=== PATIENT | female | born 1985 | race Caucasian/White ===

== ENCOUNTER 2019-08-17 13:53 | Inpatient (IN) | payer OTHER ==
--- NOTE | 2019-08-17 14:31 | ED ---
Psychiatric Complaint - HPI Summary HPI Summary: This patient is a 34 year old F presenting to ED with a chief complaint of suicidal ideations since a while ago, but worsening recently. Patient has attempted suicide a few times in the past. Patient has plans to cut herself, overdose, and jump off a kita. Patient is on Vistaril for depression and anxiety. Patient is on parole. She was recently taken off Paxil due to hallucinations. The patient rates the pain 0/10 in severity. Symptoms aggravated by nothing. Symptoms alleviated by nothing. Patient denies fever. - History Of Current Complaint Chief Complaint: EDSuicidal Time Seen by Provider: 08/17/19 14:19 Hx Obtained From: Patient Onset/Duration: Gradual Onset, Lasting Weeks, Still Present, Worse Since Timing: Constant Severity Initially: Severe Severity Currently: Severe Character: Anxious Aggravating Factor(s): Nothing Alleviating Factor(s): Nothing Related History: Positive For: Prior Psychiatric Issues Has Suicidal: Reports: Thoughts, With A Plan - Allergies/Home Medications Allergies/Adverse Reactions: Allergies Allergy/AdvReac Type Severity Reaction Status Date / Time paroxetine [From Paxil] Allergy Hallucinati Verified 08/18/19 09:08 ons Penicillins Allergy Palpitation Verified 08/18/19 09:08 s Home Medications: Home Medications Benzonatate CAP* [Tessalon 100 MG CAP*] 100 mg PO TID PRN 08/17/19 [History Confirmed 08/17/19] Ipratropium Br (Nf)0.03% Nasal [Ipratropium [place]] 0.06 % BOTH NARES BID PRN 08/17/19 [History Confirmed 08/17/19] Levothyroxine TAB* [Synthroid TAB*] 75 mcg PO DAILY 08/17/19 [History Confirmed 08/17/19] Naproxen TAB* [Naprosyn 250 mg TAB*] 500 mg PO BID WITH MEALS 08/17/19 [History Confirmed 08/17/19] hydrOXYzine pamoate [Vistaril] 50 mg PO BID 08/17/19 [History Confirmed 08/17/19 ] PMH/Surg Hx/FS Hx/Imm Hx Sensory History: Denies: Hx Legally Blind, Hx Deafness Opthamlomology History: Denies: Hx Legally Blind EENT History: Denies: Hx Deafness Psychiatric History: Reports: Hx Anxiety, Hx Suicide Attempt - Surgical History Surgery Procedure, Year, and Place: denies Infectious Disease History: No Infectious Disease History: Denies: Traveled Outside the [place] in Last 30 Days - Family History Known Family History: Positive: Diabetes - Social History Alcohol Use: None Hx Substance Use: No Substance Use Type: Reports: None Substance Use Comment - Amount & Last Used: denies at this time Hx Tobacco Use: Yes Smoking Status (MU): Heavy Every Day Tobacco Smoker Review of Systems Negative: Fever Psychological: Other - SI Positive: Anxious All Other Systems Reviewed And Are Negative: Yes Physical Exam - Summary Physical Exam Summary: VITAL SIGNS: Reviewed. GENERAL: Patient is a well-developed and nourished female who is severely anxious. HEAD AND FACE: No signs of trauma. No ecchymosis, hematomas or skull depressions. No sinus tenderness. EYES: PERRLA, EOMI x 2, No injected conjunctiva, no nystagmus. EARS: Hearing grossly intact. Ear canals and tympanic membranes are within normal limits. MOUTH: Oropharynx within normal limits. NECK: Supple, trachea is midline, no adenopathy, no JVD, no carotid bruit, no c- spine tenderness, neck with full ROM. CHEST: Symmetric, no tenderness at palpation. LUNGS: Clear to auscultation bilaterally. No wheezing or crackles. CVS: Regular rate and rhythm, S1 and S2 present, no murmurs or gallops appreciated. ABDOMEN: Soft, non-tender. No signs of distention. No rebound, no guarding, and no masses palpated. Bowel sounds are normal. EXTREMITIES: FROM in all major joints, no edema, no cyanosis or clubbing. NEURO: Alert and oriented x 3. No acute neurological deficits. Speech is normal and follows commands. SKIN: Dry and warm. PSYCH: Severely anxious, admits to suicidal thoughts and plans. Triage Information Reviewed: Yes Vital Signs On Initial Exam: Initial Vitals Temp Pulse Resp BP Pulse Ox 97.0 F 110 18 151/97 100 08/17/19 13:56 08/17/19 13:56 08/17/19 13:56 08/17/19 13:56 08/17/19 13:56 Vital Signs Reviewed: Yes Diagnostics - Vital Signs Vital Signs Temp Pulse Resp BP Pulse Ox 08/17/19 13:56 97.0 F 110 18 151/97 100 - Laboratory Result Diagrams: 08/17/19 15:08 08/17/19 15:08 Lab Statement: Any lab studies that have been ordered have been reviewed, and results considered in the medical decision making process. Course/Dx - Course Assessment/Plan: Blood work w/o a significant abnormality. She is medically cleared. She is awaiting a MHE. Patient is hemodynamically stable and A+O x 3. Patient evaluated by Dr. Pereira and he recommends admission to the hospital. Patient will be voluntarily admitted to [facility] with dx of unspecified depression. - Differential Dx/Clinical Impression Differential Diagnosis/HQI/PQRI: Positive: Anxiety, Depression, Suicidal Ideation Provider Diagnosis: Depression Discharge ED - Sign-Out/Discharge Documenting (check all that apply): Patient Departure - Admit Patient Received Moderate/Deep Sedation with Procedure: No - Discharge Plan Condition: Fair Disposition: [facility]IATRIC FACILITY[place] [place]illing Disposition and Condition Condition: FAIR Disposition: Psychiatric Facility [facility] [place] Attestation Statements Document Initiated by Scribe: Yes Documenting Scribe: Harjinder Tello Provider For Whom Pamela is Documenting (Include Credential): Kedar Aburto MD Scribe Attestation: IHarjinder, scribed for Kedar Aburto MD on 08/18/19 at 1842. Scribe Documentation Reviewed: Yes Provider Attestation: The documentation as recorded by the Harjinder shelton accurately reflects the service I personally performed and the decisions made by me, Kedar Aburto MD Status of Scribe Document: Viewed
[2019-08-17 15:19] LABS: ABS Lymphocytes 2.1 10^3/ul (1.0-4.8); ABS Monocytes 0.6 10^3/ul (0-0.8); ABS Neutrophils 7.3 10^3/ul (1.5-7.7); Hematocrit 43 % (35-47); Hemoglobin 14.2 g/dL (12.0-16.0); Lymphocyte % 21.1 %; Mean Corpuscular HGB Conc 33 g/dL (31-36); Mean Corpuscular Hemoglobin 30 pg (27-31); Mean Corpuscular Volume 89 fL (80-97); Mean Platelet Volume 8.1 fL (7.4-10.4); Nucleated Red Blood Cells % 0.1; Platelet Count 354 10^3/uL (150-450); Red Cell Distribution Width 14 % (10-15); White Blood Count 10.1 10^3/uL (3.5-10.8)
[2019-08-17 15:38] LABS: ALT 36 U/L (7-52); AST 30 U/L (13-39); Albumin 4.5 g/dL (3.2-5.2); Albumin/Globulin Ratio 1.4 (1-3); Alkaline Phosphatase 60 U/L (34-104); Anion Gap 6 mmol/L (2-11); BUN/Creatinine Ratio 13.3 (8-20); Blood Urea Nitrogen 10 mg/dL (6-24); CO2 Carbon Dioxide 27 mmol/L (22-32); Calcium 9.5 mg/dL (8.6-10.3); Chloride 108 mmol/L (101-111); EGFR Non-African American 88.5 (>60); Globulin 3.2 g/dL (2-4); Glucose 115 mg/dL (70-100); Potassium 4.2 mmol/L (3.5-5.0); Sodium 141 mmol/L (135-145); Total Protein 7.7 g/dL (6.4-8.9)
[2019-08-17 15:49] LABS: Acetaminophen < 15 mcg/mL; Alcohol < 10 mg/dL (<10); Salicylate < 2.50 mg/dL (<30)
[2019-08-17 16:05] LABS: TSH (Thyroid Stimulating Horm) 1.31 mcIU/mL (0.34-5.60)
[2019-08-17 17:13] LABS: Urine Appearance Cloudy; Urine Bacteria Absent (Absent); Urine Bilirubin Negative (Negative); Urine Blood Negative (Negative); Urine Color Yellow; Urine Glucose Negative (Negative); Urine Ketones Negative (Negative); Urine Nitrite Negative (Negative); Urine Protein Negative (Negative); Urine Red Blood Cell Absent (Absent); Urine Specific Gravity 1.006 (1.010-1.030); Urine Squamous Epithelial Cell Present (Absent); Urine Urobilinogen Negative (Negative); Urine White Blood Cell Trace(0-5/hpf) (Absent)
[2019-08-17 17:32] LABS: Urine Benzodiazepine Screen None Detected (None Detect); Urine Opiates Screen None Detected (None Detect)
[2019-08-17] MEDS ORDERED: hydrOXYzine HCL TAB* 50 MG ONE (20:20)
[2019-08-17] MEDS ORDERED: Acetaminophen TAB* 325 MG ONE (20:20)
[2019-08-17] MEDS ORDERED: Al Hydrox/Mg Hydrox/Simet LIQ* 30 ML UDC PO PRN (20:22)
[2019-08-17] MEDS ORDERED: Nicotine* 2MG (FRUIT FLAVOR) GUM PO PRN (20:22)
[2019-08-17] MEDS: Nicotine Patch Removal NOTE PATCH OFF SCH (21:07)
[2019-08-18 08:54] LABS: Cholesterol 210 mg/dL; HDL Cholesterol 42.5 mg/dL; LDL Cholesterol 144 mg/dL; Triglycerides 119 mg/dL
[2019-08-18] MEDS: Nicotine PATCH 21 MG/24 HR* PATCH TRANSDERM SCH (11:23)
[2019-08-18] MEDS: Vitamin THERAPEUTIC TAB PO SCH (11:24)
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
[2019-08-18 11:57] LABS: HCG Pregnancy < 0.60 mIU/mL
[2019-08-18] MEDS: Acetaminophen TAB* 325 MG PO PRN ×2 (13:15→21:09)
[2019-08-18] MEDS: ARIPiprazole TAB* 5 MG PO SCH (13:15)
[2019-08-18] MEDS: hydrOXYzine HCL TAB* 50 MG PO PRN ×2 (13:15→21:09)
[2019-08-18 18:55] LABS: Hepatitis C Antibody Reactive (Negative)
[2019-08-18] MEDS: Nicotine Patch Removal NOTE PATCH OFF SCH (19:39)
[2019-08-19] MEDS: ARIPiprazole TAB* 5 MG PO SCH (08:21)
[2019-08-19] MEDS: Vitamin THERAPEUTIC TAB PO SCH (08:21)
[2019-08-19] MEDS: hydrOXYzine HCL TAB* 50 MG PO PRN ×2 (08:23→20:05)
[2019-08-19] MEDS: Acetaminophen TAB* 325 MG PO PRN ×2 (08:23→20:05)
[2019-08-19] MEDS: Nicotine PATCH 21 MG/24 HR* PATCH TRANSDERM SCH (08:24)
[2019-08-19 08:33] LABS: HIV 4th Generation Nonreactive (Nonreactive)
--- NOTE | 2019-08-19 13:04 | PN ---
Subjective - Subjective Date of Service: 08/19/19 Service Type: 44258 Hosp care 35 min high complexity Subjective: Nursing Report: Patient was visible on unit, no behavioral incidents. Slept overnight. CC: "Fine Patient was seen and evaluated today. Per staff report the patient is mostly secluding herself to her room. The patient reported she feels safe on the unit and is interacting with peers. She reported having an adequate appetite and sleep. The patient expressed that she doesnt like group settings and has not been going to the groups. Per nursing no behavioral issues or overnight events reported. Patient reported that she is tolerating medications without side effects. Objective - General Observations Appears Stated Age: Yes Stature: WNL Posture: Slumped Eye Contact: Average - Interaction Observations Attitude Towards Examiner: Cooperative Stated Mood: Dysphoric Affect: Blunted Speech Pattern/Tone: Clear Thought Process: Coherent Perception: WNL Thought Content: Self-Deprecatory Thought Process: Lethality: Passive Wish Hallucination Type: None Delusion Type: None - Cognitive Function Orientation: A&O x 4 Level of Consciousness: Awake - Medication Compliance Cooperative with Inpatient Medication Regimen: Yes - Group Participation Participates in Group Activities: No Assessment - Assessment Merits Inpatient Hospitalization: For Immediate Safety Clinical Impression: 34 year old with history of unspecified mood disorder came to the hospital with suicidal ideation and was admitted to the BSU at [facility]. Plan - Plan Treatment Plan: Name: JONATHAN MYLES Birthdate: 1985 [id number] Plan #Q15 minute observation. # The patient requires psychiatric inpatient admission at this time to assure safety, receive treatment and work toward stabilization. # EKG ordered for risk of QT prolongation of antipsychotic medication. # B-HCG was ordered and results are negative. # Obtain collateral information once release is signed. # Collaboration with Gas Maker Helper # Continue Abilify 5mg daily for mood # Hepatitis C AB + # Ordered Hepatitis C RNA viral load #Recommend outpatient follow up with Infectious Disease --> Dr. Rogers [address] [place], [place]. [phone] #Patient can return to live with her friend. # Her support system includes her mother and friend Sofie. Sodium 141 mmol/L (135-145) 08/17/19 15:08 Potassium 4.2 mmol/L (3.5-5.0) 08/17/19 15:08 BUN 10 mg/dL (6-24) 08/17/19 15:08 Creatinine 0.75 mg/dL (0.51-0.95) 08/17/19 15:08 Hemoglobin A1c 5.3 % (4.0-5.6) 08/18/19 08:20 Calcium 9.5 mg/dL (8.6-10.3) 08/17/19 15:08 AST 30 U/L (13-39) 08/17/19 15:08 ALT 36 U/L (7-52) 08/17/19 15:08 Triglycerides 119 mg/dL 08/18/19 08:20 Cholesterol 210 mg/dL 08/18/19 08:20 LDL Cholesterol 144 mg/dL 08/18/19 08:20 Continued Medication Management: Continue Outpt Medication Medications: Current Medications Acetaminophen (Tylenol Tab*) 650 mg PO Q4H PRN PRN Reason: PAIN or TEMP > 101 F Last Admin: 08/19/19 08:23 Dose: 650 mg Al Hydrox/Mg Hydrox/Simethicone (Maalox Plus*) 30 ml PO Q4H PRN PRN Reason: INDIGESTION Aripiprazole (Abilify Tab*) 5 mg PO DAILY [facility] Last Admin: 08/19/19 08:21 Dose: 5 mg Hydroxyzine HCl (Atarax Tab*) 50 mg PO Q6H PRN PRN Reason: ANXIETY Last Admin: 08/19/19 08:23 Dose: 50 mg Levothyroxine Sodium (Synthroid Tab*) 75 mcg PO DAILY@0600 [facility] Multivitamins (Theragran Tab*) 1 tab PO DAILY [facility] Last Admin: 08/19/19 08:21 Dose: 1 tab Nicotine (Nicotine Patch 21 Mg/24 Hr*) 1 patch TRANSDERM DAILY [facility] Last Admin: 08/19/19 08:24 Dose: Not Given Nicotine Polacrilex (Nicotine Gum*) 2 mg PO Q2H PRN PRN Reason: CRAVINGS Pharmacy Profile Note (Nicotine Patch Removal Note*) 1 note PATCH OFF 2100 [facility] Last Admin: 08/18/19 19:39 Dose: Not Given - Discharge Plan Discharge Plan: Inpatient Hospitalization Outpatient Program: [facility]
[2019-08-19] MEDS: Nicotine Patch Removal NOTE PATCH OFF SCH (20:44)
[2019-08-20] MEDS: Levothyroxine TAB* 75 MCG TAB PO SCH (08:42)
[2019-08-20] MEDS: Vitamin THERAPEUTIC TAB PO SCH (08:42)
[2019-08-20] MEDS: Acetaminophen TAB* 325 MG PO PRN ×2 (08:42→20:13)
[2019-08-20] MEDS: ARIPiprazole TAB* 5 MG PO SCH (08:42)
[2019-08-20] MEDS: hydrOXYzine HCL TAB* 50 MG PO PRN ×2 (08:42→20:14)
[2019-08-20] MEDS: Nicotine PATCH 21 MG/24 HR* PATCH TRANSDERM SCH (08:43)
--- NOTE | 2019-08-20 16:12 | PN ---
Subjective - Subjective Date of Service: 08/20/19 Service Type: 30937 Hosp care 25 min moderate complexity Subjective: Makenzie leyvaues to be isolative in her room saying she feels depressed although her affect looks bright. Denies SI, HI or psychosis. Tolerating meds well. Objective - General Observations Appearance: Well Groomed Appears Stated Age: Yes Stature: Overweight Posture: WNL Eye Contact: Average Behavior/Activity: WNL - Interaction Observations Attitude Towards Examiner: Cooperative Stated Mood: Euthymic Affect: Full Speech Pattern/Tone: Clear, Appropriate, Normal Volume Thought Process: Coherent, Goal Directed Perception: WNL Thought Content: WNL Hallucination Type: Denies Delusion Type: Denies - Cognitive Function Orientation: A&O x 4 Level of Consciousness: Awake, Alert, Appropriate Cognition: WNL Estimated Intelligence: Normal Insight: WNL Judgment Within Normal Limits: Yes - Medication Compliance Cooperative with Inpatient Medication Regimen: Yes - Group Participation Participates in Group Activities: No Assessment - Assessment Merits Inpatient Hospitalization: For Stabilization, Pending Safe DC Plan Clinical Impression: 34 year old with history of unspecified mood disorder came to the hospital with suicidal ideation and was admitted to the BSU at [facility]. Plan - Plan Treatment Plan: Name: JONATHAN MYLES Birthdate: 1985 [id number] Plan #Q15 minute observation. # The patient requires psychiatric inpatient admission at this time to assure safety, receive treatment and work toward stabilization. # EKG ordered for risk of QT prolongation of antipsychotic medication. # B-HCG was ordered and results are negative. # Obtain collateral information once release is signed. # Collaboration with Inspector Rubber Stamp Die # Continue Abilify 5mg daily for mood # Hepatitis C AB + # Ordered Hepatitis C RNA viral load #Recommend outpatient follow up with Infectious Disease --> Dr. Rogers [address] [place], [place]. [phone] #Patient can return to live with her friend. # Her support system includes her mother and friend Sofie. Sodium 141 mmol/L (135-145) 08/17/19 15:08 Potassium 4.2 mmol/L (3.5-5.0) 08/17/19 15:08 BUN 10 mg/dL (6-24) 08/17/19 15:08 Creatinine 0.75 mg/dL (0.51-0.95) 08/17/19 15:08 Hemoglobin A1c 5.3 % (4.0-5.6) 08/18/19 08:20 Calcium 9.5 mg/dL (8.6-10.3) 08/17/19 15:08 AST 30 U/L (13-39) 08/17/19 15:08 ALT 36 U/L (7-52) 08/17/19 15:08 Triglycerides 119 mg/dL 08/18/19 08:20 Cholesterol 210 mg/dL 08/18/19 08:20 LDL Cholesterol 144 mg/dL 08/18/19 08:20 Continued Medication Management: Continue Outpt Medication Medications: Current Medications Acetaminophen (Tylenol Tab*) 650 mg PO Q4H PRN PRN Reason: PAIN or TEMP > 101 F Last Admin: 08/20/19 08:42 Dose: 650 mg Al Hydrox/Mg Hydrox/Simethicone (Maalox Plus*) 30 ml PO Q4H PRN PRN Reason: INDIGESTION Aripiprazole (Abilify Tab*) 5 mg PO DAILY [facility] Last Admin: 08/20/19 08:42 Dose: 5 mg Hydroxyzine HCl (Atarax Tab*) 50 mg PO Q6H PRN PRN Reason: ANXIETY Last Admin: 08/20/19 08:42 Dose: 50 mg Levothyroxine Sodium (Synthroid Tab*) 75 mcg PO DAILY@0600 [facility] Last Admin: 08/20/19 08:42 Dose: 75 mcg Multivitamins (Theragran Tab*) 1 tab PO DAILY [facility] Last Admin: 08/20/19 08:42 Dose: 1 tab Nicotine (Nicotine Patch 21 Mg/24 Hr*) 1 patch TRANSDERM DAILY [facility] Last Admin: 08/20/19 08:43 Dose: Not Given Nicotine Polacrilex (Nicotine Gum*) 2 mg PO Q2H PRN PRN Reason: CRAVINGS Pharmacy Profile Note (Nicotine Patch Removal Note*) 1 note PATCH OFF 2100 [facility] Last Admin: 08/19/19 20:44 Dose: Not Given - Discharge Plan Discharge Plan: Outpatient Follow Up Outpatient Program: [facility]
[2019-08-20] MEDS: Nicotine Patch Removal NOTE PATCH OFF SCH (19:43)
[2019-08-21] MEDS: Acetaminophen TAB* 325 MG PO PRN ×3 (09:02→20:35)
[2019-08-21] MEDS: hydrOXYzine HCL TAB* 50 MG PO PRN ×2 (09:03→15:56)
[2019-08-21] MEDS: Vitamin THERAPEUTIC TAB PO SCH (09:03)
[2019-08-21] MEDS: ARIPiprazole TAB* 5 MG PO SCH (09:03)
[2019-08-21] MEDS: Levothyroxine TAB* 75 MCG TAB PO SCH (09:03)
[2019-08-21] MEDS: Nicotine PATCH 21 MG/24 HR* PATCH TRANSDERM SCH (09:03)
[2019-08-21] MEDS: Nicotine Patch Removal NOTE PATCH OFF SCH (20:30)
[2019-08-22] MEDS: Acetaminophen TAB* 325 MG PO PRN (07:45)
[2019-08-22] MEDS: Vitamin THERAPEUTIC TAB PO SCH (07:45)
[2019-08-22] MEDS: hydrOXYzine HCL TAB* 50 MG PO PRN (07:45)
[2019-08-22] MEDS: ARIPiprazole TAB* 5 MG PO SCH (07:46)
[2019-08-22] MEDS: Levothyroxine TAB* 75 MCG TAB PO SCH (07:46)
[2019-08-22] MEDS: Nicotine PATCH 21 MG/24 HR* PATCH TRANSDERM SCH (07:46)
[2019-08-22 08:53] VITALS: BP 122/79
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
== END 2019-08-22 10:30 | disposition home or self-care (01) | DRG 753 ==
LOC: ED 13:53 → BSU 17:30 → MERGE 17:30
PROVIDERS: ADMIT Psychiatry & Neurology Psychiatry; ATTEND Psychiatry & Neurology Psychiatry
DX: F31.30 Bipolar disorder, current episode depressed, mild or moderate severity, unspecified (principal); R45.851 Suicidal ideations; F17.210 Nicotine dependence, cigarettes, uncomplicated; E03.9 Hypothyroidism, unspecified; F11.21 Opioid dependence, in remission; F15.21 Other stimulant dependence, in remission; Z62.810 Personal history of physical and sexual abuse in childhood; Z88.8 Allergy status to other drugs, medicaments and biological substances; Z81.3 Family history of other psychoactive substance abuse and dependence; Z81.8 Family history of other mental and behavioral disorders
CPT/HCPCS: 36415; 80053; 80061; 80307; 80320; 80329; 81003; 81015; 83036; 84443; 84702; 85025; 86780; 86803; 87077; 87086; 87389; 87522; 93005; 99222; 99232; 99233; 99238; 99284; A9270-GY; G0480

== ENCOUNTER 2021-03-12 15:01 | Inpatient (IN) ==
[2021-03-12 16:20] LABS: ABS Lymphocytes 1.4 10^3/ul (1.0-4.8); ABS Monocytes 0.5 10^3/ul (0-0.8); ABS Neutrophils 4.5 10^3/ul (1.5-7.7); Hematocrit 40 % (35-47); Hemoglobin 13.1 g/dL (12.0-16.0); Lymphocyte % 21.7 %; Mean Corpuscular HGB Conc 33 g/dL (31-36); Mean Corpuscular Hemoglobin 29 pg (27-31); Mean Corpuscular Volume 87 fL (80-97); Mean Platelet Volume 8.2 fL (7.4-10.4); Nucleated Red Blood Cells % 0.1; Platelet Count 304 10^3/uL (150-450); Red Blood Count 4.52 10^6 /uL (3.70-4.87); Red Cell Distribution Width 15 % (10-15); White Blood Count 6.5 10^3/uL (3.5-10.8)
[2021-03-12 16:46] LABS: ALT 115 U/L (7-52); AST 50 U/L (13-39); Albumin 4.3 g/dL (3.2-5.2); Albumin/Globulin Ratio 1.3 (1-3); Alkaline Phosphatase 92 U/L (34-104); Anion Gap 9 mmol/L (2-11); Blood Urea Nitrogen 10 mg/dL (6-24); CO2 Carbon Dioxide 21 mmol/L (22-32); Calcium 9.5 mg/dL (8.6-10.3); Chloride 106 mmol/L (101-111); EGFR African American 106.4 (>60); EGFR Non-African American 87.9 (>60); Globulin 3.3 g/dL (2-4); Glucose 91 mg/dL (70-100); Potassium 3.6 mmol/L (3.5-5.0); Sodium 136 mmol/L (135-145); Total Protein 7.6 g/dL (6.4-8.9)
[2021-03-12 16:51] LABS: Acetaminophen < 15 mcg/mL; Alcohol, S < 10 mg/dL (<10); Salicylate < 2.50 mg/dL (<30)
[2021-03-12 17:02] LABS: TSH Ultra Thyroid Stim Horm 2.85 mcIU/mL (0.34-5.60)
[2021-03-12 19:30] LABS: HCG Pregnancy < 0.60 mIU/mL
[2021-03-12 20:29] LABS: Urine Appearance Cloudy; Urine Bilirubin Negative (Negative); Urine Blood Negative (Negative); Urine Color Yellow; Urine Glucose Negative (Negative); Urine Ketones Negative (Negative); Urine Nitrite Negative (Negative); Urine Protein Negative (Negative); Urine Specific Gravity 1.009 (1.002-1.030); Urine Urobilinogen Negative (Negative)
[2021-03-12 20:46] LABS: Urine Benzodiazepine Screen None Detected (None Detect); Urine Cannabinoids Screen None Detected (None Detect); Urine Opiates Screen None Detected (None Detect)
[2021-03-13] MEDS ORDERED: Al Hydrox/Mg Hydrox/Simet LIQ 30 ML UDC PO PRN (02:12)
[2021-03-13] MEDS ORDERED: Albuterol HFA INHALER 8 gm MDI INH PRN (02:16)
[2021-03-13] MEDS ORDERED: Nicotine GUM 2MG FRUIT FLAVOR PO PRN (03:00)
[2021-03-13] MEDS: Vitamin THERAPEUTIC TAB PO SCH (08:25)
[2021-03-13] MEDS: Nicotine PATCH 21 MG/24 HR PATCH TRANSDERM SCH (08:25)
[2021-03-14 08:10] LABS: HDL Cholesterol 26.6 mg/dL
[2021-03-14] MEDS: Nicotine PATCH 21 MG/24 HR PATCH TRANSDERM SCH (09:28)
[2021-03-14] MEDS: Vitamin THERAPEUTIC TAB PO SCH (09:28)
[2021-03-15] MEDS: Vitamin THERAPEUTIC TAB PO SCH (09:23)
[2021-03-15] MEDS: Nicotine PATCH 21 MG/24 HR PATCH TRANSDERM SCH (09:24)
[2021-03-16] MEDS: Vitamin THERAPEUTIC TAB PO SCH (08:28)
[2021-03-16] MEDS: Nicotine PATCH 21 MG/24 HR PATCH TRANSDERM SCH (10:08)
[2021-03-17] MEDS: Vitamin THERAPEUTIC TAB PO SCH (08:49)
[2021-03-17] MEDS: Nicotine PATCH 21 MG/24 HR PATCH TRANSDERM SCH (08:50)
[2021-03-18 08:25] VITALS: BP 123/71
[2021-03-18] MEDS: Nicotine PATCH 21 MG/24 HR PATCH TRANSDERM SCH (08:27)
[2021-03-18] MEDS: Vitamin THERAPEUTIC TAB PO SCH (08:27)
== END 2021-03-18 11:34 | disposition home or self-care (01) | DRG 753 ==
LOC: ED 15:01 → BSU 23:30
PROVIDERS: ADMIT Psychiatry & Neurology Psychiatry; ATTEND Psychiatry & Neurology Psychiatry